=== PATIENT | male | born 1980 | race Caucasian/White ===

== ENCOUNTER 2023-03-23 18:53 | Emergency (ER) | payer OTHER, SELFPAY ==
[2023-03-23 19:18] VITALS: BP 155/114; PULSE 110; RESP 16; TEMP 36.3; O2SAT 99
--- NOTE | 2023-03-23 19:37 | ED_ITS ---
HPI - Abdominal Pain General Chief Complaint: Abdominal Pain Stated Complaint: Vomiting Sharp Abdominal Pain Time Seen by Provider: 03/23/23 19:07 History of Present Illness HPI narrative: This 42-year-old male comes in reporting severe episodes of upper epigastric pain that began last night. He states the pain is always there but there are distinct times where it becomes much more intense and then it dissipates. He does not report any diarrhea or fevers. He has had some nausea and vomiting. Prior to this he has been in good health. He states that he had a lot of food yesterday but denies using any alcohol. Related Data Home Medications Medication Instructions Recorded Confirmed emtricitabine 200 mg-rilpivirine 1 tab PO DAILY 03/23/23 03/23/23 25 mg-tenofovir alafenam 25 mg tablet (Odefsey) Previous Rx's Medication Instructions Recorded pantoprazole 20 mg tablet,delayed 20 mg PO DAILY #10 tabs 03/23/23 release (Protonix) Allergies Allergy/AdvReac Type Severity Reaction Status Date / Time No Known Drug Allergies Allergy Verified 03/23/23 19:17 Review of Systems Status of ROS Reports: 10 or more systems reviewed and unremarkable except as noted in History and below Narrative Constitutional: No fevers, no weight gain or loss. Eyes: No discharge. No vision changes. HENT: No congestion, no sore throat, no ear pain. Cardiovascular: No chest pain, no palpitations. Respiratory: No shortness of breath, no wheezes, no cough. Gastrointestinal: No diarrhea. Upper epigastric abdominal pain with associated nausea and vomiting. Genitourinary: No dysuria, no hematuria. Musculoskeletal: Normal range of motion. Skin: No rashes, no pruritis. Neurological: No dizziness, weakness, sensory change, speech change. Endo/Heme/Allergies: No bruising or bleeding. No polydipsia. Pysch: no suicidality, no anxiety, no insomnia. All other systems reviewed and are negative. PFSH PFSH Social History Smoking Status: Current every day smoker What tobacco products do you use: cigarettes Do you use any of these nicotine containing products: None How often do you have a drink containing alcohol: never AUDIT-C Alcohol total score: 0 Non-prescribed substance use: marijuana (any form) and amphetamines/methamphetamines Exam Narrative: Exam Narrative: Constitutional: Well-developed, well-nourished. HEENT: Normocephalic, atraumatic. Neck: Normal range of motion. Nontender. Supple. Heart: Regular. No murmurs. Normal rate. Intact distal pulses. Lungs: Clear to auscultation. No chest discomfort. No wheezes, rhonchi, or rales. Abdomen: Normal bowel sounds. Tenderness in the upper epigastric region. No rebound tenderness. Genitalia: Deferred. Back: No midline tenderness. Normal range of motion. Extremities: Normal range of motion. No injury. Skin: Intact. No rash. Warm. No erythema or pallor. Neurologic: No altered sensation. No weakness. Alert and oriented. Psychiatric: No suicidality. No anxiety or depression. No insomnia. Nursing notes and vitals signs are reviewed. Const: Vital Signs, click to edit/add: Vital Signs - 24 hr 03/23/23 19:18 03/23/23 21:12 Temperature 97.4 F L Pulse Rate [Left P ulse Oximeter] 110 H 83 Respiratory Rate 16 16 Blood Pressure [Ri ght Upper Arm] 155/114 H 150/107 H Pulse Oximetry 99 98 Oxygen Delivery Me thod Room Air Room Air Course Vital Signs Vital signs: Initial Vital Signs Temperature 97.4 F L 03/23/23 19:18 Temperature Source Temporal Artery Scan 03/23/23 19:18 Pulse Rate 110 H 03/23/23 19:18 Pulse Rhythm Regular 03/23/23 19:18 Respiratory Rate 16 03/23/23 19:18 Blood Pressure 155/114 H 03/23/23 19:18 Blood Pressure Mean 127 H 03/23/23 19:18 Blood Pressure Position Semi-Fowlers 03/23/23 19:18 Pulse Oximetry 99 03/23/23 19:18 Oxygen Delivery Method Room Air 03/23/23 19:18 Vital Signs Temperature 97.4 F L 03/23/23 19:18 Pulse Rate 110 H 03/23/23 19:18 Respiratory Rate 16 03/23/23 19:18 Blood Pressure 155/114 H 03/23/23 19:18 Pulse Oximetry 99 03/23/23 19:18 Oxygen Delivery Method Room Air 03/23/23 19:18 Temperature 97.4 F L 03/23/23 19:18 Pulse Rate 83 03/23/23 21:12 Respiratory Rate 16 03/23/23 21:12 Blood Pressure 150/107 H 03/23/23 21:12 Pulse Oximetry 98 03/23/23 21:12 Oxygen Delivery Method Room Air 03/23/23 21:12 MDM - Abdominal Pain MDM Narrative Medical decision making narrative: This patient comes in with rather severe upper epigastric abdominal pain. He did have some mild tachycardia initially but otherwise his vital signs are normal. He denies using any alcohol recently but did he had a fair amount of food yesterday said. His pain started last evening. He does state that he uses amphetamines. This patient had poor veins and was difficult to draw enough blood for all of the test to be completed. His metabolic panel returns normal as does troponin and lipase. A complete blood count was not obtained. He received a GI cocktail and IV doses of Zofran, Toradol, and Dilaudid which brought great relief to his symptoms. He received prescription for Protonix and some tablets of Toradol and Zofran. At the time of discharge the patient appears safe for outpatient management. The treatment plan is reviewed along with written and verbal return precautions. Reasons to return and the importance of close followup were also reviewed. Lab Data Labs: Lab Results 03/23/23 03/23/23 Range/Units 19:35 20:15 Sodium 138 (135-149) mmol/L Potassium 3.8 (3.6-5.1) mmol/L Chloride 101 (96-114) mmol/L Carbon Dioxide 26 (20-32) mmol/L BUN 16 (5-24) mg/dL Creatinine 0.9 (0.5-1.5) mg/dL Estimated GFR 110 ml/min Glucose 123 H (60-115) mg/dL Calcium 10.2 (8.4-10.6) mg/dL Total Bilirubin 1.3 (0.1-1.5) mg/dL Direct Bilirubin 0.4 (0.0-0.5) mg/dL AST 27 (12-35) U/L ALT 33 (4-50) U/L Alkaline Phosphatase 75 (40-150) U/L Total Protein 9.7 H (6.0-8.3) g/dL Albumin 5.0 (3.3-5.0) g/dL Lipase 107 (23-300) U/L POC Troponin I 0.00 L (0.01-0.04) ng/ml ECG Data Attestation: I personally reviewed and interpreted this ECG as follows: Interpretation: Normal sinus rhythm. Rate is 90 beats per minute. There are no ST or T-wave abnormalities. Discharge Plan Discharge Clinical Impression: Gastritis Patient Disposition: Home, Self-Care Condition: Improved Additional Instructions: Take medication as needed and indicated. Follow up with MD or return if worsening. Prescriptions: New pantoprazole [Protonix] 20 mg tablet,delayed release (DR/EC) 20 mg PO DAILY Qty: 10 2RF No Action Odefsey 200-25-25 mg tablet 1 tab PO DAILY Follow Up/Referrals: Provider,Not a Local [Primary Care Provider] - Stand Alone Forms: [facility] Info Instructions
[2023-03-23] MEDS: ONDANSETRON 2 MG/ML inj 4 MG IVP (20:11)
[2023-03-23] MEDS: KETOROLAC 30 MG/ML inj IVP (20:11)
[2023-03-23] MEDS: GI COCKTAIL (VISC LIDO/ANTACID) 30 ML PO (20:25)
[2023-03-23] MEDS: 0.9 % SODIUM CHLORIDE 1000 ml 1,000 ML IV (20:27)
[2023-03-23] MEDS: HYDROmorphone 0.5 mg/0.5 ml inj IVP (20:32)
[2023-03-23 20:38] LABS: Chloride* 101 mmol/L (96-114)
[2023-03-23 20:39] LABS: Potassium* 3.8 mmol/L (3.6-5.1); Sodium* 138 mmol/L (135-149)
[2023-03-23 20:41] LABS: Alkaline Phosphatase* 75 U/L (40-150); Aspartate Amino Transferase* 27 U/L (12-35); Bilirubin Direct* 0.4 mg/dL (0.0-0.5); Bilirubin Total* 1.3 mg/dL (0.1-1.5); Blood Urea Nitrogen* 16 mg/dL (5-24); Carbon Dioxide* 26 mmol/L (20-32); Creatinine* 0.9 mg/dL (0.5-1.5); Estimated Glomerular Filt Rate 110 ml/min; Glucose* 123 mg/dL (60-115); Lipase* 107 U/L (23-300); Total Protein* 9.7 g/dL (6.0-8.3)
[2023-03-23 20:42] LABS: Alanine Aminotransferase* 33 U/L (4-50); Calcium* 10.2 mg/dL (8.4-10.6)
[2023-03-23 21:12] VITALS: BP 150/107; PULSE 83; RESP 16; O2SAT 98
== END 2023-03-23 21:38 | disposition home or self-care (01) ==
PROVIDERS: Emergency Provider Emergency Medicine Emergency Medical Services
DX: K29.70 Gastritis, unspecified, without bleeding (principal)
CPT/HCPCS: 36415; 76705; 80048; 80076; 83690; 84484; 85025; 93005; 96361; 96374; 96375; 99284; 99285; A9270; J1170; J1885; J2405; J7030